=== PATIENT | male | born 1945 | race Caucasian/White ===

== ENCOUNTER 2016-12-17 07:13 | Day surgery (SDC) | payer MEDICARE, OTHER ==
[2016-12-15 11:30] LABS: BASOPHILS 2.3 %; BASOPHILS ABSOLUTE 0.09 10/3/uL (0.0-0.16); EOSINOPHILS 1.5 %; EOSINOPHILS ABSOLUTE 0.06 10/3/uL (0.0-0.53); HEMATOCRIT 43.9 % (40.0-51.0); HEMOGLOBIN 14.6 g/dL (13.6-17.8); IMMATURE GRANULOCYTES 0.5 %; IMMATURE GRANULOCYTES ABSOLUTE 0.02 10/3/uL (0.0-0.11); LYMPHOCYTES 26.9 %; LYMPHOCYTES ABSOLUTE 1.05 10/3/uL (0.67-4.30); MEAN CORPUS HGB CONC 33.3 g/dL (32.0-36.0); MEAN CORPUSCULAR HEMOGLOB 32.2 pg (26.0-34.0); MEAN CORPUSCULAR VOLUME 96.9 fL (80-100); MEAN PLATELET VOLUME 9.8 fL (9.2-13.0); MONOCYTES 9.2 %; MONOCYTES ABSOLUTE 0.36 10/3/uL (0.21-1.20); NEUTROPHILS 59.6 %; NEUTROPHILS ABSOLUTE 2.32 10/3/uL (2.02-8.40); PLATELET COUNT 202 10/3/uL (150-400); RBC DISTRIBUTION WIDTH 12.6 % (12.0-16.0); RED CELL COUNT 4.53 10/6/uL (4.7-6.1)
[2016-12-15 11:31] LABS: MANUAL DIFF NO %; WHITE BLOOD CELLS 3.9 10/3/uL (4.5-10.5)
[2016-12-15 11:39] LABS: CALCIUM, SERUM 8.7 MG/DL (8.5-10.4); CHLORIDE, SERUM 104 MMOL/L (96-112); CO2 (CARBON DIOXIDE) 30 MMOL/L (24-34); GFR AFRICAN AMERICAN 87 ML/MIN (>=60); GFR NON AFRICAN AMERICAN 75 ML/MIN (>=60); GLUCOSE, SERUM 104 MG/DL (60-99); POTASSIUM, SERUM 3.9 MMOL/L (3.5-5.3); SODIUM, SERUM 141 MMOL/L (135-148)
[2016-12-15 11:40] LABS: BUN (BLOOD UREA NITROGEN) 13 MG/DL (6-23); CREATININE 1.02 MG/DL (0.70-1.30)
[2016-12-16 15:45] LABS: A/G RATIO 1.1 (0.7-1.9); ALKALINE PHOSPHATASE 95 U/L (45-117); GLOBULIN 3.6 G/DL (2.5-4.1); SGOT(AST) 31 U/L (5-40); SGPT(ALT) 37 U/L (5-65); TOTAL BILIRUBIN 0.4 MG/DL (0-1.2); TOTAL PROTEIN 7.6 G/DL (6.0-8.5)
--- NOTE | ~2016-12-17 | OP ---
Record Of Operation [facility] [address] [place]. [address] NAME: ANITA WALLER : 49 STATUS : [facility]#: [id number] AGE: 71 ADM/REG DATE : 12/17/16 MR#: [id number] REPORT SERV DATE: 12/17/16 DICTATED BY: LEONEL JADE DATE: 12/17/16 REPORT STATUS : Draft TRANSCRIBED BY: BLANCA DATE: 12/17/16 DATE OF PROCEDURE: 12/17/2016 PREOPERATIVE DIAGNOSIS: Bladder stones. POSTOPERATIVE DIAGNOSIS: Bladder stones. OPERATIVE PROCEDURES: 1. Holmium laser lithotripsy, bladder stones. 2. Lithoclast lithotripsy, bladder stones. 3. Evacuation of bladder stones. ANESTHESIA: General and endotracheal. SURGEON: Leonle Jade M.D. ESTIMATED BLOOD LOSS: 10 mL. SPECIMENS: Bladder stone fragments. DRAINS: None. COMPLICATIONS: None. IMMEDIATE POSTOP: Satisfactory. DESCRIPTION OF PROCEDURE: The patient was brought in to the cysto suite, given inhalational endotracheal anesthesia. Placed in lithotomy position. Perineum and genitalia were prepped and draped in sterile fashion. Video cystourethroscopy was then performed using a #22 cystoscope and Foroblique lens. Distal urethra was normal. Prostate showed bilobar hyperplasia with hypertrophy of the bladder neck. No true median lobe was noted. Upon entering the bladder, it was immediately noted that there were approximately 4 bladder stones. Two were 8-10 mm in size. The other were small enough to irrigate out through the resectoscope sheath. Initially, a 1000 micron Holmium laser fiber was passed through the scope and laser lithotripsy was initiated, however progress was slow and for this reason, I aborted laser lithotripsy and converted to a Spanish lithoclast lithotripsy. The lithoclast probe was passed through the resectoscope sheath and the stones were carefully fragmented into small pieces which were then easily irrigated out using an Ellik evacuator. The bladder was inspected. While there was one small area of submucosal hemorrhage at the site of the procedure, the integrity of the bladder wall was intact. The orifices were normal and there were no remaining fragments noted. At this point, the resectoscope was removed and the stone fragments had been evacuated using the Ellik evacuator. After checking for residual chips (none were noted) and hemostasis (which was complete), the resectoscope was removed, and the patient was awakened and sent to recovery in satisfactory condition. Record Of Operation [facility] [address] [place]. [address] NAME: ANITA WALLER : 49 STATUS : [facility]#: [id number] AGE: 71 ADM/REG DATE : 12/17/16 MR#: [id number] REPORT SERV DATE: 12/17/16 DICTATED BY: LEONEL JADE DATE: 12/17/16 REPORT STATUS : Draft TRANSCRIBED BY: MODKendall DATE: 12/17/16 MS/MODL Leonel Jade M.D. / [id number] CC: Buddy Duran [facility]
[~2016-12-17 07:13] MED LIST: FLOMAX4 PO; LOTE20 PO; NORV5 PO
[2016-12-22 18:33] LABS: STONE COMPOSITION TWO DNR (())
[2017-01-22] MEDS ORDERED: PRILOSEC40 MG PO (15:10)
[2017-01-22] MEDS ORDERED: PERCOCET 10/3251 TAB PO (15:10)
[2017-01-22] MEDS ORDERED: METHOC750B PO (15:12)
== END 2016-12-17 13:15 | disposition home or self-care (01) ==
LOC: SDC 07:13
PROVIDERS: Urology
PROC: 0TCB8ZZ Extirpation of Matter from Bladder, Via Natural or Artificial Opening Endoscopic (ICD-10-PCS; principal; 2016-12-17 08:45)
DX: N21.0 Calculus in bladder (principal); N40.0 Benign prostatic hyperplasia without lower urinary tract symptoms; I10 Essential (primary) hypertension; Z88.0 Allergy status to penicillin; Z88.2 Allergy status to sulfonamides; Z79.899 Other long term (current) drug therapy; Z87.442 Personal history of urinary calculi; Z98.890 Other specified postprocedural states; Z86.010 Personal history of colon polyps; Z90.89 Acquired absence of other organs
CPT/HCPCS: 71020; 80048; 80053; 81001; 82365; 83690; 85025; 93005; 99283; J2250; J2405; J2710; J3010

== ENCOUNTER 2017-01-18 16:16 | Emergency (ER) | payer MEDICARE, OTHER ==
[2017-01-18 12:51] LABS: BASOPHILS 0.6 %; BASOPHILS ABSOLUTE 0.04 10/3/uL (0.0-0.16); EOSINOPHILS 0.9 %; EOSINOPHILS ABSOLUTE 0.06 10/3/uL (0.0-0.53); HEMATOCRIT 41.2 % (40.0-51.0); HEMOGLOBIN 13.9 g/dL (13.6-17.8); IMMATURE GRANULOCYTES 0.3 %; IMMATURE GRANULOCYTES ABSOLUTE 0.02 10/3/uL (0.0-0.11); LYMPHOCYTES 12.3 %; LYMPHOCYTES ABSOLUTE 0.85 10/3/uL (0.67-4.30); MEAN CORPUS HGB CONC 33.7 g/dL (32.0-36.0); MEAN CORPUSCULAR HEMOGLOB 32.2 pg (26.0-34.0); MEAN CORPUSCULAR VOLUME 95.4 fL (80-100); MEAN PLATELET VOLUME 9.6 fL (9.2-13.0); MONOCYTES 6.6 %; MONOCYTES ABSOLUTE 0.46 10/3/uL (0.21-1.20); NEUTROPHILS 79.3 %; NEUTROPHILS ABSOLUTE 5.49 10/3/uL (2.02-8.40); PLATELET COUNT 174 10/3/uL (150-400); RBC DISTRIBUTION WIDTH 12.7 % (12.0-16.0); RED CELL COUNT 4.32 10/6/uL (4.7-6.1)
[2017-01-18 12:52] LABS: MANUAL DIFF NO %; WHITE BLOOD CELLS 6.9 10/3/uL (4.5-10.5)
[2017-01-18 13:07] LABS: A/G RATIO 1.2 (0.7-1.9); ALBUMIN 3.7 G/DL (3.5-5.0); ALKALINE PHOSPHATASE 104 U/L (45-117); BUN (BLOOD UREA NITROGEN) 16 MG/DL (6-23); CALCIUM, SERUM 8.3 MG/DL (8.5-10.4); CHLORIDE, SERUM 103 MMOL/L (96-112); CO2 (CARBON DIOXIDE) 27 MMOL/L (24-34); CREATININE 0.99 MG/DL (0.70-1.30); GFR AFRICAN AMERICAN 90 ML/MIN (>=60); GFR NON AFRICAN AMERICAN 77 ML/MIN (>=60); GLOBULIN 3.1 G/DL (2.5-4.1); POTASSIUM, SERUM 3.9 MMOL/L (3.5-5.3); SGOT(AST) 28 U/L (5-40); SGPT(ALT) 29 U/L (5-65); SODIUM, SERUM 140 MMOL/L (135-148); TOTAL PROTEIN 6.8 G/DL (6.0-8.5)
[2017-01-18 13:12] LABS: GLUCOSE, SERUM 88 MG/DL (60-99)
[2017-01-18 14:04] LABS: ASCORBIC ACID (UR NOT ORDER) NEG (NEG); BILIRUBIN, URINE NEGATIVE (NEG); ER URINALYSIS TAT 0 Hrs 12 Mins; KETONE, URINE 20 MG/DL (NEG); LEUKOCYTE ESTERASE(NOT OR MOD (NEG); NITRITE (URINE) NEG (NEG); WBC (NOT ORDERED) (RFLEX) 141 (0-5)
[2017-01-22] MEDS ORDERED: PERCOCET 10/3251 TAB PO (15:10)
[2017-01-22] MEDS ORDERED: PRILOSEC40 MG PO (15:10)
[2017-01-22] MEDS ORDERED: METHOC750B PO (15:12)
== END 2017-01-18 17:49 | disposition home or self-care (01) ==
LOC: ER 16:16
PROVIDERS: Emergency Medicine
DX: S32.019A Unspecified fracture of first lumbar vertebra, initial encounter for closed fracture (principal); S93.401A Sprain of unspecified ligament of right ankle, initial encounter; N39.0 Urinary tract infection, site not specified; I10 Essential (primary) hypertension; Z88.0 Allergy status to penicillin; Z88.2 Allergy status to sulfonamides; Z79.899 Other long term (current) drug therapy; W13.2XXA Fall from, out of or through roof, initial encounter
CPT/HCPCS: 72131; 72192; 73552-RT; 73590-RT; 73610-RT; 73630-RT; 80053; 81001; 85025; 87086; 96365; 96375; 99284; J1885; J2800; J2930

== ENCOUNTER 2017-01-26 04:14 | Day surgery (SDC) | payer MEDICARE, OTHER ==
[2017-01-23 11:31] LABS: HEMATOCRIT 44.5 % (40.0-51.0); HEMOGLOBIN 15.2 g/dL (13.6-17.8)
[2017-01-23 11:40] LABS: BUN (BLOOD UREA NITROGEN) 24 MG/DL (6-23); CALCIUM, SERUM 8.9 MG/DL (8.5-10.4); CHLORIDE, SERUM 101 MMOL/L (96-112); CO2 (CARBON DIOXIDE) 30 MMOL/L (24-34); CREATININE 0.99 MG/DL (0.70-1.30); GFR AFRICAN AMERICAN 90 ML/MIN (>=60); GFR NON AFRICAN AMERICAN 77 ML/MIN (>=60); GLUCOSE, SERUM 85 MG/DL (60-99); POTASSIUM, SERUM 4.4 MMOL/L (3.5-5.3); SODIUM, SERUM 139 MMOL/L (135-148)
--- NOTE | ~2017-01-26 | OP ---
Record Of Operation [facility] [address] [place]. [address] NAME: ANITA WALLER : 49 STATUS : REG [facility] PAT#: [id number] AGE: 71 ADM/REG DATE : 01/26/17 MR#: [id number] REPORT SERV DATE: 01/26/17 DICTATED BY: FERDINAND GARCIA DATE: 01/26/17 REPORT STATUS : Draft TRANSCRIBED BY: MODL DATE: 01/26/17 DATE OF PROCEDURE: PREOPERATIVE DIAGNOSIS: Traumatic L1 compression fracture. POSTOPERATIVE DIAGNOSIS: Traumatic L1 compression fracture. PROCEDURE: 1. Navigation-assisted surgery. 2. L1 kyphoplasty. SURGEON: Dr. Garcia. PHYSICS TUTOR: Lencho Trujillo. ANESTHESIA: General. BLOOD LOSS: 10 mL. INDICATIONS FOR SURGERY: A 71-year-old male who had a fall 10 days ago at home with acute onset of severe back pain. The pain worsened over 3 or 4 days after the fall. It was all back pain. He did not have radiculopathy, he had no nerve compression symptoms. We had seen in the office last , x-rays and MRI obtained showing an acute fracture. There is a fracture through the superior portion of the vertebral body. There was some wedging of the vertebral body of L1. There was no retropulsion. There was no nerve compression. The patient was offered bracing and medications and natural healing. The patient said he was having so much pain, he wanted something for pain relief faster, thus he was offered kyphoplasty and chose to proceed. This morning, I identified in the preop holding area, went through discussion of the procedure with he and his . I did explain the risks to include but not limited to infection, there could be cement extravasation that can cause vascular or pulmonary collapse or , there could be nerve injury, paralysis, hematoma, neurologic deficit, etc. Perioperative complications such as UTI, PE, pneumonia, CO, CVA, etc., and anesthesia complications were explained, consent form has been signed. DESCRIPTION OF PROCEDURE: The patient was brought to the operative suite, general anesthetic including endotracheal intubation was administered. He was placed prone on a Vaibhav spine frame, bony prominences were carefully padded. Thoracolumbar spine was scrubbed with Hibiclens solution. DuraPrep was painted. Sterile drapes applied. Because of the location of the fracture and the need to identify these small pedicles, we felt the intraoperative navigation was mandatory, and intraoperative CT scan with O-arm obtained, CT information used to register the navigational system. With navigational assistance, I used a navigated Jamshidi needle and placed the obturator Record Of Operation [facility] [address] [place]. [address] NAME: ANITA WALLER : 49 STATUS : REG [facility]#: [id number] AGE: 71 ADM/REG DATE : 01/26/17 MR#: [id number] REPORT SERV DATE: 01/26/17 DICTATED BY: FERDINAND GARCIA DATE: 01/26/17 REPORT STATUS : Draft TRANSCRIBED BY: MODL DATE: 01/26/17 and cannula through the pedicle, left and right side, into the posterior portion of vertebral body. The obturators were removed, the cannula was left in place, a guidewire was placed. The guidewire was then used to remove the initial cannula and placed a cannula for the kyphoplasty over the guidewire. Once the large cannula was placed, left and right side, the guidewires were removed. The kyphoplasty balloons were inserted, inflated, and deflated creating a bone void. This was followed by insertion of 4 cc of polymethylmethacrylate under continuous C-arm imaging. There was no extravasation. There was nice filling of the fracture defect. We could actually see under C-arm and under the navigational imaging that once we had placed him prone that the fracture compared to a standing AP x-ray as well as standing lateral x-ray had restored and body height and at that point, there was positional quaker of the normal body architecture in the prone position, the cement filled this gap that was created by the fracture that had collapsed. The cement injection was uneventful. The cannulas were removed. The sterile dressings were applied. The patient returned to the supine position, awakened, extubated, taken to recovery room in satisfactory condition having tolerated procedure well. Sponge, needle, and instrument counts were correct. No intraoperative complications noted. /BLANCA Ferdinand Garcia D.O. / [id number]
[~2017-01-26 04:14] MED LIST changes: +METHOC750B PO; +PERCOCET 10/3251 TAB PO; +PRILOSEC40 MG PO
== END 2017-01-26 15:24 | disposition home or self-care (01) ==
LOC: SDC 04:14
PROVIDERS: Orthopaedic Surgery Orthopaedic Surgery of the Spine
PROC: 0QU03JZ Supplement Lumbar Vertebra with Synthetic Substitute, Percutaneous Approach (ICD-10-PCS; 2017-01-26)
PROC: 0QS03ZZ Reposition Lumbar Vertebra, Percutaneous Approach (ICD-10-PCS; principal; 2017-01-26 05:45)
DX: S32.010A Wedge compression fracture of first lumbar vertebra, initial encounter for closed fracture (principal); W13.2XXA Fall from, out of or through roof, initial encounter; Y93.9 Activity, unspecified; Y92.009 Unspecified place in unspecified non-institutional (private) residence as the place of occurrence of the external cause; I10 Essential (primary) hypertension; N40.0 Benign prostatic hyperplasia without lower urinary tract symptoms; K21.9 Gastro-esophageal reflux disease without esophagitis; K44.9 Diaphragmatic hernia without obstruction or gangrene; Z88.0 Allergy status to penicillin; Z88.2 Allergy status to sulfonamides; Z79.899 Other long term (current) drug therapy; Z98.890 Other specified postprocedural states; Z87.442 Personal history of urinary calculi; Z90.89 Acquired absence of other organs
CPT/HCPCS: 80048; 85014; 85018; 93005; C1726; C1769; J2250; J2405; J2710; J3010; Q9967